=== PATIENT | male | born 1985 | race Caucasian/White ===

== ENCOUNTER → 2016-05-25 | Outpatient (REF) | LOC: WSOH 12:09 | DX: Z11.1 Encounter for screening for respiratory tuberculosis (principal) ==

== ENCOUNTER → 2016-06-12 | Outpatient (REF) | LOC: WSOH 06-06 14:49 | DX: Z00.00 Encounter for general adult medical examination without abnormal findings (principal) ==

== ENCOUNTER 2020-11-15 10:02 | Day surgery (SDC) | payer OTHER ==
[~2020-11-15] VITALS: Ht 175.3 cm; Wt 81.0 kg
[2020-11-15 11:15] VITALS: BP 116/65; PULSE 64; TEMP 98
--- NOTE | 2020-11-15 13:00 | NUR ---
Resting and offers no further complaints of pain or nausea.
--- NOTE | 2020-11-15 14:11 | NUR ---
Spouse had to leave for a family emergency and patient's sister is here now.
[2020-11-15 16:15] VITALS: BP 124/76; PULSE 55; TEMP 98.3
--- NOTE | 2020-11-15 16:33 | NUR ---
36Y/O MALE RETURNED FROM PACU WITH SLIGHT NAUSEA. PT WAS GIVEN MEDICATION TO HELP WITH SYMPTOMS. PT STATED, IT DID HELP SOME, FEELS LIKE A BALL OF AIR I MY STOMACH. PT WAS OFFERED CRACKERS AND SPRITE IN PACU. IS CURRENTLY TOLERATING WELL. LUNGS CLEAR, HRR AND YANCY, BOWEL SOUNDS ACTIVE IN ALL QUADRANTS. IV NOTED TO LEFT AC, IVF RUNNING TKO WITHOUT REDNESS OR SWELLING. 3X PUNCTURE SITES NOTED, CLEAN, DRY AND INTACT. NO DRAINAGE NOTED. PT SLEEPING ON AND OFF. WILL CONT TO MONITOR PROGRESSION.
[2020-11-15 16:36] VITALS: BP 135/72; PULSE 59
[2020-11-15 16:51] VITALS: BP 129/75; PULSE 54
[2020-11-15 16:54] VITALS: BP 128/74; PULSE 62
[2020-11-15] MEDS ORDERED: NORCO 325 MG-51 TAB PO (17:37)
[2020-11-15] MEDS ORDERED: MOTRIN 600600 MG/TAB PO (17:37)
--- NOTE | 2020-11-15 17:54 | NUR ---
PT IS STILL C/O FEELING 'AIR' IN HIS ABDOMEN. ENCOURAGED PATIENT TO GET UP AND WALK TO THE BATHROOM. PT TOLERATING SPRITE AND CRACKERS. PT TOLERATED ACTIVITY/AMBULATING TO THE BATHROOM WITHOUT DIFFICULTY. PT VOIDED WITHOUT DIFFICULTY. IV WAS DC'D TO LEFT AC, PT TOLERATED WELL. PT STATED THAT HIS [id number] SUDDENLY TODAY, WOULD LIKE TO DISCHARGE SOON. AWAITNG ORDERS TO BE VERIFIED BY SURGEON. LAPROSCOPY SITES ARE CLEAN, DRY AND INTACT.
--- NOTE | 2020-11-15 18:00 | NUR ---
PT FEELING BETTER WITH THE FEELING OF NAUSEA, DENIES PAIN. AWAITING DISCHARGE.
--- NOTE | 2020-11-15 18:02 | NUR ---
GIVEN THE NATURE OF THE RECENT OF HIS [id number]. THE PATIENT CAME OUT TO THE NURSES STATION FULLY DRESSED AND STATED, 'I NEED TO GO, CAN THE DR JUST CALL MY PRESCRIPTIONS IN TO MY PHARMACY.' PT WAS AMBULATED OUT THROUGH THE EMERGENCY ROOM ENTRANCE WITH HIS MOTHER AT HIS SIDE. PATIENT EDUCATION WAS GIVEN TO HIM REGARDING POST-OP CARE WITH DR BUSH'S LAPROSCOPIC SURGERY INSTRUCTIONS. THE PATIENT INSTRUCTION SIGNATURE PAGE WAS SIGNED AND DATED. OTHER ORDERS REGARDING MEDICATIONS WERE NOT GIVEN TO PATIENT AT TIME OF DISCHARGE. PT STATED NEEDING TO GO GIVEN THE RECENT AND ALSO AWAITNG SURGEON TO FINALIZE ORDERS. PATIENT WAS WALKING OUT THE DOOR, WE WERE NOTIFIED THAT HIS E-SCRIPT WAS SENT TO THE PHARMACY PT HAD DESIGNATED ON ADMISSION TO THE ER.
== END 2020-11-15 18:00 | disposition home or self-care (01) ==
LOC: SDCO 10:02
DX: K35.80 Unspecified acute appendicitis (principal)
CPT/HCPCS: J0690; J1100; J1885; J2270; J2405; J2550; J2704; J3010; J7120